=== PATIENT | male | born 1990 | race Caucasian/White ===

== ENCOUNTER 2021-09-29 10:08 | Emergency (ER) | payer BC ==
[2021-09-29 11:16] LABS: SARS-CoV-2 NAA Rapid Test DETECTED (NotDetected)
== END 2021-09-29 11:50 | disposition home or self-care (01) ==
LOC: CSHERS 10:08
DX: U07.1 COVID-19 (principal); F17.210 Nicotine dependence, cigarettes, uncomplicated
CPT/HCPCS: 99283

== ENCOUNTER 2021-12-30 13:28 | Emergency (ER) | payer BC | END 2021-12-30 14:30 | disposition home or self-care (01) | LOC: CSHERS 13:28 | DX: J06.9 Acute upper respiratory infection, unspecified (principal); F17.210 Nicotine dependence, cigarettes, uncomplicated | CPT/HCPCS: 99283 ==